=== PATIENT | female | born 1985 | race Caucasian/White ===

== ENCOUNTER → 2018-08-15 | Outpatient (CLI) | payer OTHER ==
[~2018-08-15] MED LIST: ACET500 PO; AMOX500 PO; Amoxicillin500 MG PO; CRUTCH3 USE; CRUTCH4 XX; Cipro250 MG PO; ESOM20; ESOM20 PO; FLUC150A PO; Flagyl500 MG PO; HYDACE5 PO; IBUP400 PO; IBUP600 PO; NAPR500 PO; Norco 5-325 Ta1 EACH PO; OXYACE5T PO; OXYC5 PO; PANT40 PO; PRED20 PO; PROM25 PO; RXHYDACE PO; RXTRAM50 PO; TRAM50 PO; Ultram50 MG PO; Veetids 500500 MG PO; [UNRECOGNIZED DRUG - OTHER]
[2018-08-15 16:21] LABS: BASOPHILS ABSOLUTE AUTO 0.02 K/mm3 (0.00-0.23); BASOPHILS PERCENT AUTO 0 % (0-2); EOSINOPHILS ABSOLUTE AUTO 0.14 K/mm3 (0.00-0.68); EOSINOPHILS PERCENT AUTO 2 % (0-6); Hematocrit 38.4 % (33.0-51.0); IMMATURE GRAN ABSOLUTE AUTO 0.03 K/mm3 (0.00-0.10); IMMATURE GRAN PERCENT AUTO 0 % (0-1); LYMPHOCYTES ABSOLUTE AUTO 3.14 K/mm3 (0.84-5.20); LYMPHOCYTES PERCENT AUTO 38 % (21-46); MONOCYTES ABSOLUTE AUTO 0.66 K/mm3 (0.16-1.47); MONOCYTES PERCENT AUTO 8 % (4-13); Mean Corpuscular HGB 28.1 pg (26.0-34.0); Mean Corpuscular HGB Conc 33.9 g/dL (31.5-36.5); Mean Corpuscular Volume 83 fL (80-100); Mean Platelet Volume 9.9 fL (9.1-12.4); NEUTROPHILS ABSOLUTE AUTO 4.26 K/mm3 (1.96-9.15); NEUTROPHILS PERCENT AUTO 52 % (41-73); Platelet Count 458 K/mm3 (150-400); RDW Coefficient Variation 12.3 % (11.7-14.2); RDW Standard Deviation 37.4 fL (35.1-46.3); Red Blood Cell Count 4.62 M/mm3 (3.80-5.20); White Blood Cell Count 8.25 K/mm3 (4.00-11.30)
[2018-08-15 16:41] LABS: Alanine Aminotransfer (ALT/SGP 49 U/L (12-78); Albumin, Blood 4.1 g/dL (3.4-5.0); Alk Phos 78 U/L (40-126); Anion Gap 9 mmol/L (6-16); Aspartate Aminotrans (AST/SGOT 26 U/L (12-37); Bilirubin, Total 0.5 mg/dL (0.1-1.0); Blood Urea Nitrogen 15 mg/dL (8-24); Bun/Creatinine Ratio 20.5 (12.0-20.0); CO2, Blood 27 mmol/L (21-32); Calcium, Blood 9.3 mg/dL (8.5-10.1); Chloride, Blood 100 mmol/L (98-108); Creatinine, Blood 0.73 mg/dL (0.40-1.00); Glomerular Filtration Rate >60 (60-); Glucose, Blood 98 mg/dL (70-99); Potassium, Blood 3.3 mmol/L (3.5-5.5); Sodium, Blood 136 mmol/L (136-145); Thyroid Stimulating Hormone 1.511 uIU/mL (0.360-4.800); Total Protein, Blood 8.1 g/dL (6.4-8.2)
[2018-08-15 16:42] LABS: Troponin I <0.017 ng/mL (0.000-0.040)
== END | disposition home or self-care (01) ==
LOC: LAB EV 16:16 → LAB SHORT 16:16
PROVIDERS: Physician Assistant
DX: R07.9 Chest pain, unspecified (principal); N39.0 Urinary tract infection, site not specified
CPT/HCPCS: 80053; 84443; 84484; 85025; 85379; 87086

== ENCOUNTER → 2024-03-10 | Outpatient (CLI) | payer OTHER | LOC: LAB SHORT 13:50 → LAB 13:50 | DX: L81.9 Disorder of pigmentation, unspecified (principal) | CPT/HCPCS: 88305 ==